=== PATIENT | female | born 1950 | race Caucasian/White ===

== ENCOUNTER 2020-09-23 16:37 | Emergency (ER) | payer MEDICARE, BC ==
[2020-09-23] MEDS ORDERED: Acetaminophen 500 MG Tab PO ONE (17:14)
[2020-09-23] MEDS ORDERED: traMADol 50 MG Tab PO ONE (17:14)
[2020-09-23] MEDS ORDERED: amLODIPine 10 MG Tab PO STA (17:15)
--- NOTE | 2020-09-23 18:05 | EDM.PDOC ---
ED HPI GENERAL MEDICAL PROBLEM - General Chief Complaint: General Stated Complaint: SHARP LT BREAST PAIN Time Seen by Provider: 09/23/20 16:45 Source of Information: Reports: Patient History Limitations: Reports: No Limitations - History of Present Illness INITIAL COMMENTS - FREE TEXT/NARRATIVE: Patient presented to the ED because of pain below her left breast which started yesterday. The pain is sharp, reproducible, 3/10. there is no associated nausea,vomiting, dyspnea. Left Breast Pain Score (Numeric/FACES): 6 - Related Data Allergies Allergy/AdvReac Type Severity Reaction Status Date / Time clindamycin Allergy Rash Verified 09/23/20 16:51 morphine Allergy Hallucinati Verified 09/23/20 16:51 ons Penicillins Allergy Rash Verified 09/23/20 16:51 tramadol Allergy Hallucinati Verified 09/23/20 16:51 ons Home Meds: Home Meds Aspirin 325 mg PO DAILY 12/08/13 [History] [id number] 149-Hyal [Glucosamine Chondroitin Complx] 1 each PO BEDTIME 12/08/13 [History] Lisinopril 2.5 mg PO BID 12/08/13 [History] Multivitamin [Multivitamins] 1 each PO BEDTIME 12/08/13 [History] Caneadea-3 Fatty Acids [Caneadea-3] 1,000 mg PO BEDTIME 12/08/13 [History] Simvastatin [Zocor] 10 mg PO BEDTIME 12/08/13 [History] Past Medical History Cardiovascular History: Reports: High Cholesterol, Hypertension - Past Surgical History Cardiovascular Surgical History: Reports: Valve Replacement, Other (See Below) Other Cardiovascular Surgeries/Procedures: mitral valve replace Social & Family History - Tobacco Use Tobacco Use Status *Q: Never Tobacco User - Caffeine Use Caffeine Use: Reports: Coffee, Soda ED ROS GENERAL - Review of Systems Review Of Systems: See Below Constitutional: Reports: No Symptoms HEENT: Reports: No Symptoms Respiratory: Reports: No Symptoms Cardiovascular: Reports: Chest Pain Endocrine: Reports: No Symptoms GI/Abdominal: Reports: No Symptoms : Reports: No Symptoms Musculoskeletal: Reports: No Symptoms Skin: Reports: No Symptoms Neurological: Reports: No Symptoms ED EXAM, GENERAL - Physical Exam Exam: See Below Exam Limited By: No Limitations General Appearance: Alert, No Apparent Distress Eye Exam: Bilateral Eye: PERRL Ears: Normal External Exam Nose: Normal Inspection, Normal Mucosa Throat/Mouth: Normal Inspection, Normal Lips, Normal Teeth, Normal Gums Head: Atraumatic, Normocephalic Neck: Normal Inspection, Supple, Non-Tender, Full Range of Motion Respiratory/Chest: No Respiratory Distress, Lungs Clear, Normal Breath Sounds Cardiovascular: Normal Peripheral Pulses, Regular Rate, Rhythm, No Edema, No Gallop, No JVD, No Murmur GI/Abdominal: Normal Bowel Sounds, Soft, Non-Tender Back Exam: Normal Inspection Extremities: Normal Inspection, Normal Range of Motion, Non-Tender Neurological: Alert, Oriented, CN II-XII Intact, Normal Cognition Course - Vital Signs Text/Narrative:: Labs/EKG was discussed with patient Tylenol 1000 mg po x1 for pain Refused NSAIDS She also refused to take Norvasc 10 mg po x1 for her hypertensive crisis. She said she want to take her own lisinopril. Last Recorded V/S: Last Vital Signs Temp 36.4 C 09/23/20 16:40 Pulse 97 09/23/20 17:50 Resp 18 09/23/20 17:50 BP 190/89 H 09/23/20 17:50 Pulse Ox 97 09/23/20 17:50 - Orders/Labs/Meds Orders: Active Orders 24 hr Category Date Time Status EKG Documentation Completion [RC] ASDIRECTED Care 09/23/20 17:16 Active EKG 12 Lead [EK] Routine Ther 09/23/20 17:16 Ordered Labs: Laboratory Tests 09/23/20 09/23/20 09/23/20 Range/Units 17:35 17:35 17:35 WBC 11.6 H (3.0-10.3) x10-3/uL RBC 4.69 (3.60-5.20) x10(6)uL Hgb 14.0 (11.4-15.5) g/dL Hct 42.6 (34.2-48.2) % MCV 90.7 (76.7-100.5) fL MCH 29.9 (23.9-33.9) pg MCHC 33.0 (31.9-34.8) g/dL RDW 14.5 (12.3-16.5) % Plt Count 323 (151-488) x10(3)uL MPV 8.1 (7.1-12.4) fL Neut % (Auto) 71.5 (30.8-76.2) % Lymph % (Auto) 19.8 (18.4-52.1) % [place] % (Auto) 7.9 (4.4-15.7) % Eos % (Auto) 0.4 L (0.6-8.1) % Baso % (Auto) 0.4 (0.2-1.5) % Neut # (Auto) 8.3 H (1.5-6.3) x10-3/uL Lymph # (Auto) 2.3 (1.0-4.4) x10-3/uL [place] # (Auto) 0.9 (0.3-1.0) x10-3/uL Eos # (Auto) 0.0 (0.0-0.8) x10-3/uL Baso # (Auto) 0.0 (0.0-0.1) x10-3/uL Sodium 140 (135-145) mmol/L Potassium 3.9 (3.5-5.3) mmol/L Chloride 102 (100-110) mmol/L Carbon Dioxide 27 (21-32) mmol/L BUN 20 H (7-18) mg/dL Creatinine 1.2 H (0.55-1.02) mg/dL Est Cr Clr Drug Dosing 37.67 mL/min Estimated GFR (MDRD) 44 L (>60) BUN/Creatinine Ratio 16.7 (9-20) Glucose 118 H (80-116) mg/dL Calcium 9.4 (8.6-10.2) mg/dL Total Bilirubin 0.5 (0.1-1.3) mg/dL AST 23 (5-25) IU/L ALT 19 (12-36) U/L Alkaline Phosphatase 90 (56-112) IU/L Troponin I 6.3 (4.0-60.3) pg/mL Total Protein 7.9 (6.0-8.0) g/dL Albumin 3.7 (3.2-4.6) g/dL Globulin 4.2 g/dL Albumin/Globulin Ratio 0.9 Meds: Medications Discontinued Medications Generic Name Dose Route Start Last Admin Trade Name Freq PRN Reason Stop Dose Admin Acetaminophen 1,000 mg 09/23/20 17:14 09/23/20 17:24 Tylenol Extra Strength PO 12/02/20 17:15 1,000 mg ONETIME ONE Administration Amlodipine Besylate 10 mg 09/23/20 17:15 09/23/20 17:24 Norvasc PO 09/23/20 17:16 Not Given NOW STA Tramadol HCl 100 mg 09/23/20 17:14 09/23/20 17:24 Ultram PO 09/23/20 17:15 Not Given ONETIME ONE Departure - Departure Time of Disposition: 18:05 Disposition: Home, Self-Care 01 Condition: Good Clinical Impression: Hypertensive urgency, Chest wall pain - Discharge Information Instructions: Nonspecific Chest Pain, Adult, [id number], Hypertension, Adult, [id number] Referrals: Chelle Correa PA [Primary Care Provider] - Forms: ED Department Discharge Additional Instructions: Please read discharge instructions on elevated BP and chest wall pain Continue your lisinopril Tylenol 1000 mg every 8 hours as needed for pain Follow up with your doctor with regards to your elevated BP Sepsis Event Note (ED) - Evaluation Sepsis Screening Result: No Definite Risk - Focused Exam Vital Signs: Vital Signs Temp Pulse Resp BP Pulse Ox 09/23/20 17:50 97 18 190/89 H 97 09/23/20 17:40 99 18 180/96 H 100 09/23/20 17:15 99 18 203/103 H 99 09/23/20 17:00 100 18 200/102 H 99 09/23/20 16:40 36.4 C 99 18 204/102 H 99 - My Orders Last 24 Hours: My Active Orders 09/23/20 17:16 EKG Documentation Completion [RC] ASDIRECTED EKG 12 Lead [EK] Routine - Assessment/Plan Last 24 Hours: My Active Orders 09/23/20 17:16 EKG Documentation Completion [RC] ASDIRECTED EKG 12 Lead [EK] Routine
[2020-09-23 21:28] VITALS: BP 165/88; PULSE 83
== END 2020-09-23 18:28 | disposition home or self-care (01) ==
LOC: FB.ED 16:37
DX: R07.89 Other chest pain (principal); I16.0 Hypertensive urgency; E78.00 Pure hypercholesterolemia, unspecified; Z88.1 Allergy status to other antibiotic agents; Z88.5 Allergy status to narcotic agent; Z88.0 Allergy status to penicillin; Z79.82 Long term (current) use of aspirin; Z79.899 Other long term (current) drug therapy
CPT/HCPCS: 36415; 80053; 84484; 85025; 93005; 99285-25; A9270-GY

== ENCOUNTER 2022-10-23 06:18 | Emergency (ER) | payer MEDICARE, BC ==
[2022-10-23 07:12] LABS: ESTIMATED GFR 53 mL/min (>60)
[2022-10-23] MEDS ORDERED: Iopamidol 755 Mg/ML 100 ML Bottle IV ONE (07:37)
[2022-10-23] MEDS ORDERED: Labetalol 20 MG/4 ML Syringe IVPUSH ONE ×2 (07:38→08:20)
[2022-10-23] MEDS ORDERED: amLODIPine 5 MG Tab PO ONE (09:19)
[2022-10-23 14:30] VITALS: BP 156/82; PULSE 74
== END 2022-10-23 10:37 | disposition home or self-care (01) ==
LOC: FB.ED 06:18
DX: I71.40 Abdominal aortic aneurysm, without rupture, unspecified (principal); E78.00 Pure hypercholesterolemia, unspecified; I10 Essential (primary) hypertension; Z88.1 Allergy status to other antibiotic agents; Z88.5 Allergy status to narcotic agent; Z88.0 Allergy status to penicillin; Z79.82 Long term (current) use of aspirin; Z79.899 Other long term (current) drug therapy
CPT/HCPCS: 36415; 74177; 80053; 81001; 82150; 83690; 84484; 85025; 85610; 85730; 93005; 96374; 99284; A9270; J3490; Q9967

== ENCOUNTER 2022-11-09 15:42 | Emergency (ER) | payer MEDICARE, BC ==
[2022-11-09] MEDS ORDERED: Labetalol 20 MG/4 ML Syringe IVPUSH ONE (16:01)
[2022-11-09] MEDS: Sodium Chloride 0.9% 10 ML Syringe FLUSH PRN ×2 (16:20→16:35)
[2022-11-09 16:31] LABS: ESTIMATED GFR 53 mL/min (>60)
[2022-11-09 16:56] VITALS: BP 208/121; PULSE 102
== END 2022-11-09 17:05 | disposition home or self-care (01) ==
LOC: FB.ED 15:42
DX: I16.0 Hypertensive urgency (principal); I10 Essential (primary) hypertension; E78.00 Pure hypercholesterolemia, unspecified; Z88.1 Allergy status to other antibiotic agents; Z88.5 Allergy status to narcotic agent; Z88.0 Allergy status to penicillin; Z79.82 Long term (current) use of aspirin; Z79.899 Other long term (current) drug therapy
CPT/HCPCS: 36415; 80053; 84484; 85025; 93005; 96374; 99283-25; 99284; J3490

== ENCOUNTER 2023-12-14 09:51 | Emergency (ER) | payer MEDICARE, BC ==
[2023-12-14] MEDS ORDERED: Sodium Chloride 0.9% 10 ML Syringe FLUSH PRN (10:05)
[2023-12-14] MEDS: Labetalol 20 MG/4 ML Syringe IVPUSH ONE (10:23)
[2023-12-14 10:36] LABS: BASOPHILS PERCENT AUTO 0.4 % (0.2-1.5); EOSINOPHILS PERCENT AUTO 0.4 % (0.6-8.1); HEMATOCRIT 42.8 % (34.2-48.2); HEMOGLOBIN 14.2 g/dL (11.4-15.5); LYMPHOCYTES ABSOLUTE AUTO 1.5 x10-3/uL (1.0-4.4); LYMPHOCYTES PERCENT AUTO 16.2 % (18.4-52.1); MEAN CORPUSCULAR HGB CONC 33.1 g/dL (31.9-34.8); MEAN CORPUSCULAR VOLUME 90.7 fL (76.7-100.5); MEAN PLATELET VOLUME 7.5 fL (7.1-12.4); MONOCYTES ABSOLUTE AUTO 0.6 x10-3/uL (0.3-1.0); PLATELET COUNT,PLT 311 x10(3)uL (151-488); RED BLOOD CELL COUNT 4.72 x10(6)uL (3.60-5.20); RED CELL DISTRIBUTION WIDTH 15.6 % (12.3-16.5); WHITE BLOOD CELL COUNT,WBC 9.1 x10-3/uL (3.0-10.3)
[2023-12-14 10:37] LABS: BLOOD UREA NITROGEN,BUN 15 mg/dL (7-18); BUN/CREATININE RATIO 13.6 (9-20); CALCIUM 9.3 mg/dL (8.6-10.2); CARBON DIOXIDE,CO2 30 mmol/L (21-32); CHLORIDE,CL 101 mmol/L (100-110); CREATININE 1.1 mg/dL (0.55-1.02); ESTIMATED GFR 53 mL/min (>60); GLUCOSE RANDOM 134 mg/dL (80-116); SODIUM,NA 140 mmol/L (135-145)
[2023-12-14 10:43] LABS: ALANINE AMINOTRANSFERASE,ALT 21 U/L (12-36); ALBUMIN 3.7 g/dL (3.2-4.6); ALKALINE PHOSPHATASE 99 IU/L (56-112); ASPARTATE AMNIOTRANSFERASE,AST 15 IU/L (5-25); BILIRUBIN TOTAL 0.7 mg/dL (0.1-1.3); PROTEIN TOTAL,TP 7.6 g/dL (6.0-8.0)
[2023-12-14 10:44] VITALS: PULSE 100
[2023-12-14 10:47] LABS: LACTIC ACID 1.3 mmol/L (0.4-2.0)
[2023-12-14 10:50] LABS: TROPONIN I 7.2 pg/mL (4.0-60.3)
[2023-12-14 11:04] LABS: BILIRUBIN,URINE NEGATIVE (NEGATIVE); GLUCOSE,URINE NORMAL (NORMAL); KETONES,URINE NEGATIVE (NEGATIVE); LEUKOCYTE ESTERASE,URINE NEGATIVE (NEGATIVE); NITRITE,URINE NEGATIVE (NEGATIVE); OCCULT BLOOD,URINE NEGATIVE (NEGATIVE); PROTEIN,URINE NEGATIVE (NEGATIVE); UROBILINOGEN,URINE NORMAL (NEGATIVE)
[2023-12-14] MEDS ORDERED: amLODIPine 10 MG Tab PO STA (11:04)
[2023-12-14] MEDS: hydrALAZINE 20 MG/ML SDV IVPUSH STA (11:07)
[2023-12-14 11:13] LABS: APPEARANCE,URINE CLEAR (CLEAR); COLOR,URINE YELLOW (YELLOW); WBC,URINE 0-5 (0-5)
[2023-12-14 11:14] LABS: BACTERIA,URINE FEW (NS); SQUAMOUS EPITHELIAL CELLS,UR OCCASIONAL (NS,R,O)
[2023-12-14 11:15] LABS: INFLUENZA A NAA NEGATIVE (NEGATIVE); INFLUENZA B NAA NEGATIVE (NEGATIVE); RESPIRATORY SYNCYTIAL VIR NAA NEGATIVE (NEGATIVE)
[2023-12-14 11:18] LABS: CORONAVIRUS COVID-19 NAA NEGATIVE (NEGATIVE)
[2023-12-14 11:19] VITALS: BP 158/81
== END 2023-12-14 11:34 | disposition home or self-care (01) ==
LOC: FB.ED 09:51
DX: I16.9 Hypertensive crisis, unspecified (principal); J06.9 Acute upper respiratory infection, unspecified; Z79.899 Other long term (current) drug therapy; Z79.82 Long term (current) use of aspirin; Z88.5 Allergy status to narcotic agent; Z88.1 Allergy status to other antibiotic agents; Z88.0 Allergy status to penicillin
CPT/HCPCS: 0241U; 36415; 71045; 80053; 81001; 83605; 83880; 84484; 85025; 86140; 93005; 96374; 96375; 99284; J0360; J1920

== ENCOUNTER 2025-10-09 17:37 | Emergency (ER) | payer MEDICARE, BC ==
[2025-10-09 18:09] LABS: BASOPHILS ABSOLUTE AUTO 0.1 x10-3/uL (0.0-0.1); BASOPHILS PERCENT AUTO 0.5 % (0.2-1.5); EOSINOPHILS ABSOLUTE AUTO 0.0 x10-3/uL (0.0-0.8); EOSINOPHILS PERCENT AUTO 0.4 % (0.6-8.1); LYMPHOCYTES ABSOLUTE AUTO 1.7 x10-3/uL (1.0-4.4); LYMPHOCYTES PERCENT AUTO 14.4 % (18.4-52.1); MEAN PLATELET VOLUME 8.0 fL (7.1-12.4); MONOCYTES ABSOLUTE AUTO 0.8 x10-3/uL (0.3-1.0); MONOCYTES PERCENT AUTO 6.3 % (4.4-15.7); NEUTROPHILS ABSOLUTE AUTO 9.5 x10-3/uL (1.5-6.3); NEUTROPHILS PERCENT AUTO 78.4 % (30.8-76.2); PLATELET COUNT,PLT 306 x10(3)uL (151-488); RED BLOOD CELL COUNT 4.91 x10(6)uL (3.60-5.20); RED CELL DISTRIBUTION WIDTH 14.9 % (12.3-16.5); WHITE BLOOD CELL COUNT,WBC 12.2 x10-3/uL (3.0-10.3)
[2025-10-09] MEDS: Diltiazem 25 MG/5 ML SDV IVPUSH STA (18:10)
[2025-10-09 18:12] LABS: BLOOD UREA NITROGEN,BUN 17 mg/dL (7-18); CARBON DIOXIDE,CO2 25 mmol/L (21-32); CHLORIDE,CL 108 mmol/L (100-110); CREATININE 1.0 mg/dL (0.55-1.02); ESTIMATED GFR 59 mL/min (>60); GLUCOSE RANDOM 163 mg/dL (80-116); POTASSIUM,K 4.2 mmol/L (3.5-5.3); SODIUM,NA 144 mmol/L (135-145)
[2025-10-09] MEDS: Sodium Chloride 0.9% 10 ML Syringe FLUSH PRN (18:13)
[2025-10-09 18:17] LABS: INR 0.95 (1.00-1.24)
[2025-10-09 18:18] LABS: A/G RATIO 1.2; ALANINE AMINOTRANSFERASE,ALT 22 U/L (12-36); ASPARTATE AMNIOTRANSFERASE,AST 19 IU/L (5-25); BILIRUBIN TOTAL 0.5 mg/dL (0.1-1.3); PROTEIN TOTAL,TP 7.2 g/dL (6.0-8.0)
[2025-10-09 18:19] LABS: PTT,PARTIAL THROMBOPLSTIN TIME 22.2 SECONDS (24.4-33.2)
[2025-10-09] MEDS: Diltiazem 25 MG/5 ML SDV IVPUSH ONE (18:35)
[2025-10-09] MEDS: Metoprolol Tartrate 5 MG/5 ML SDV IVPUSH ONE (19:53)
[2025-10-09] MEDS: Metoprolol Tartrate 5 MG/5 ML SDV ONE (19:53)
[2025-10-09 19:54] VITALS: BP 131/94; PULSE 124
[2025-10-09] MEDS: Heparin Sodium 5,000 Units/ML Vial IVPUSH ONE (21:40)
[2025-10-09] MEDS: Heparin Sodium/0.45% NaCl 25,000 UNITS/500 ML BAG IV SCH (21:40)
== END 2025-10-09 21:45 ==
LOC: FB.ED 17:37
DX: I48.91 Unspecified atrial fibrillation (principal); I48.92 Unspecified atrial flutter; Z88.1 Allergy status to other antibiotic agents; Z88.5 Allergy status to narcotic agent; Z88.0 Allergy status to penicillin; Z79.82 Long term (current) use of aspirin; Z79.899 Other long term (current) drug therapy; Z86.16 Personal history of COVID-19; Z90.89 Acquired absence of other organs
CPT/HCPCS: 71045; 80053; 83880; 84484; 85025; 85610; 85730; 93005; 93010; 96374; 96375; 96376; 99285; A9270; J0616; J1163; J1644; J3490